=== PATIENT | male | born 1955 ===

== ENCOUNTER 2017-02-21 12:30 | Day surgery (SDC) | payer MEDICAID, OTHER ==
[~2017-02-21] VITALS: Ht 167.6 cm; Wt 62.1 kg
[~2017-02-21 12:30] MED LIST: 0.9% Sodium Chloride 1,000 ML IV PRN; IBUP200C PO; MELO-253 PO; SILO4CAP PO; Sodium Chloride LOK Flush 10 mL Syringe IV PRN; fentaNYL-PF 50 mCg/mL 2 mL Inj IVPUSH PRN
[2017-02-21 12:49] VITALS: BP 124/84; PULSE 86; RESP 16; O2SAT 100
[2017-02-21 13:57] VITALS: BP 89/61; PULSE 71; RESP 16; O2SAT 98
[2017-02-21 14:07] VITALS: BP 87/59; PULSE 77; RESP 16; O2SAT 97
[2017-02-21 14:17] VITALS: BP 82/59; PULSE 69; RESP 18; O2SAT 96
[2017-02-21 14:27] VITALS: BP 100/71; PULSE 74; RESP 14; O2SAT 99
--- NOTE | 2017-02-21 23:17 | ENDO ---
[address] [address] ENDOSCOPY PROCEDURE PATIENT: MORIAH HERNANDEZ : 1955 MR#: [id number] ADMIT: 02/21/2017 JOB ID: [id number] DATE OF SERVICE: 02/21/2017 PROCEDURE: Colonoscopy. INDICATIONS: Patient with a history of adenomatous colon polyps. The patient's ASA classification is 1, Mallampati score 2. MEDICATIONS: 1. Versed 4 mg. 2. Fentanyl 75 mcg. INSTRUMENT USED: PCF H 180 DL. PREPARATION QUALITY: Poor. PROCEDURE IN DETAIL: After informed consent was obtained, the patient was brought into the GI suite, where he was placed on oxygen via nasal cannula and monitored with continuous pulse oximeter, telemetry, and blood pressure monitoring. A time-out was performed. Then, he was placed in left lateral decubitus position and medications were administered for sedation. A digital rectal exam was performed, which was unremarkable. The colonoscope was then inserted into the rectum and advanced under direct visualization to the ileocecal valve. Once the ileocecal valve was reached, we did not attempt to intubate the cecum as the prep was poor. The colonoscope was then withdrawn back into the rectum as the mucosa and lumen were examined. There was semi-solid and solid stool scattered throughout the entire colon making visualization suboptimal. Retroflexed views in the rectum were unremarkable. IMPRESSION: Poor prep. RECOMMENDATIONS: Repeat colonoscopy with a two day prep. COMPLICATIONS: None. ESTIMATED BLOOD LOSS: 0.
== END 2017-02-21 23:59 | disposition home or self-care (01) ==
LOC: END 12:30
PROVIDERS: ATTEND Internal Medicine Gastroenterology
DX: Z12.11 Encounter for screening for malignant neoplasm of colon (principal); Z86.010 Personal history of colon polyps; M54.40 Lumbago with sciatica, unspecified side; K59.00 Constipation, unspecified; M06.9 Rheumatoid arthritis, unspecified; F32.9 Major depressive disorder, single episode, unspecified
CPT/HCPCS: 99152; G0105; J7030

== ENCOUNTER 2017-03-14 11:05 | Emergency (ER) | payer MEDICAID ==
[~2017-03-14] VITALS: Ht 170.2 cm; Wt 79.5 kg
[~2017-03-14 11:05] MED LIST changes: -0.9% Sodium Chloride 1,000 ML IV PRN; -Sodium Chloride LOK Flush 10 mL Syringe IV PRN; -fentaNYL-PF 50 mCg/mL 2 mL Inj IVPUSH PRN
--- NOTE | 2017-03-14 11:06 | ED.REPORT ---
HPI-General Illness Date of Service Mar 14, 2017 ED Provider: Raghu Bhandari DO Patient is a 61 year old male with a history of back pain who presents to the ED via EMS complaining of back pain. When asked if he has experienced bladder or bowel incontinence he states that occasionally he "dribbles after urination" and sometimes after eating a lot of fruit he is unable to make it to the bathroom for the bowel movement.The patient states that he has been experiencing numbness in parts of his legs but is unable to remember when this started. Patient was sent to the ED for a recommended MRI. Nursing Notes Stated Complaint: BACK PAIN Nursing Notes Reviewed: Yes Allergies: Coded Allergies: naproxen (Verified Allergy, Intermediate, Rash, 02/21/17) Sulfa (Sulfonamide Antibiotics) (Verified Allergy, Unknown, 02/21/17) Scheduled Meloxicam (Meloxicam) 15 Mg Tablet 15 MG PO DAILY Scheduled PRN Cyclobenzaprine (Cyclobenzaprine) 5 Mg Tablet 5 MG PO TID PRN PRN Spasm Hydroxyzine Pamoate (HydrOXYzine Pamoate) 25 Mg Capsule 25-50 MG PO Q6 PRN PRN ANXIETY Ibuprofen (Ibuprofen) 200 Mg Capsule 200 MG PO QID PRN PRN For Pain Naproxen (Naproxen) 500 Mg Tab 500 MG PO BID PRN PRN For Pain Miscellaneous Medications Ketorolac Tromethamine (Ketorolac Tromethamine) 30 Mg/1 Ml Syringe 30 MG IJ General Time Seen by MD: 11:06 Chief Complaint Back pain Hx Obtained From: Patient Arrived By: Ambulance Sudden in Onset?: No Onset Occurred: More than a week ago... (>6 months) Symptom Duration: Since onset Location: : Back Quality: Painful Recent Healthcare: No recent hospitalization, Recent doctor visit Similar Sx Previous: Yes Past Medical History Past Medical History osteoprosis chronic back pain Past Surgical History neck surgery Reports: Appendectomy Smoking History Unknown if Ever Smoker Ambulatory Status Independent Review of Systems Full Review of Systems Constitutional: Denies: Chills, Fever Respiratory: Denies: Non-productive cough, Shortness of breath Musculoskeletal: Reports: Back pain Neurologic: Reports: Numbness, Denies: Problem walking, Weakness Complete sys rev & neg: except as marked. Physical Exam Vital Signs Vital Signs Date Time Temp Pulse Resp B/P Pulse Ox O2 Delivery O2 Flow Rate FiO2 03/14/17 15:50 36.8 67 20 114/62 99 Room Air 03/14/17 13:39 36.8 78 20 122/72 99 Room Air 03/14/17 11:10 36.8 78 20 123/84 98 Room Air Initial VS: Reviewed General/Constitutional: Awake, Alert Head / Eyes: Atraumatic, Normocephalic, PERRL, EOMI Respiratory / Chest: Atraumatic, No respiratory distress BACK: lower lumbar tenderness parethesia of the right L3, L4 and left of L4 motor function 5/5 from L1-S1 bilaterally Lower Extremity / Pelvis / MS: Atraumatic, Full range of motion Skin: Atraumatic, Color NL, No rash, Warm, Dry Rectum / Perineum: Atraumatic normal rectal tone and sensation Neurologic: Oriented X3, Speech NL, No motor deficits, No sensory deficits Psychiatric: Affect NL, Mood NL Interpretation & Diagnostics Interpretation & Diagnostics: LUMBAR MRI: IMPRESSION: 1. No acute fracture, focal disc protrusion, or disc extrusion of the lumbar spine. 2. Soft tissue signal along the posterior margin of the T12 vertebral body may be related to vascular structures and/or volume averaging. However, an extruded disc fragment at this location is difficult to exclude. A thoracic spine MRI would be helpful for better evaluation, if indicated. 3. Moderate to severe multilevel degenerative changes of the lumbar spine are primarily evident involving the mid to lower facet joints. 4. Markedly distended urinary bladder with multiple bladder diverticula may be related to a neurogenic bladder or chronic bladder outlet obstruction. Please correlate clinically. 5. Central canal stenosis: L3-L4 (mild to moderate), L4-L5 (mild to moderate), L5-S1 (mild to moderate). 6. Neural foraminal stenosis: L4-L5 (mild to moderate bilateral), L5-S1 (moderate to severe bilateral). Dictated by: Bruce Watson M.D. on 03/14/2017 at 13:55 Approved by: Bruce Watson M.D. on 03/14/2017 at 14:08 Lab Results Interpretation Test 03/14/17 12:00 Hold Purple Top Tube Received (Received) Hold Blue Top Tube Received (Received) Hold [place] Top Tube Received (Received) Hold [place] Top Tube Received (Received) Re-Eval/Medical Decision Med Decision/Clinical Course Overall patient does not have significant signs for cauda equina syndrome, normal rectal tone and sensation, able to void on his own, no medical motor deficits on exam, mild paresthesias of the lower extremities that he states have improved during his hospital stay. He has been in around the department. An MRI without contrast was ordered due to the urging him concerning his primary care clinic. It is unremarkable. I did discuss the abnormal findings with radiology who did not think that any of them represented acute pathology, this is reasonable and reassuring. Patient will discharge on naproxen and cyclobenzaprine. Return and follow-up precautions given Time of Eval: 13:30 Re-Evaluation/Progress Note: Patient is sleeping. Discussed plan for MRI with sister. Time of Eval: 15:30 Re-Evaluation/Progress Note: Patient is moving both lower extremities and reports he has been up and walking around while in the ED. Discussed MRI results and plan for discharge. Patient understands and agrees to plan. All questions were addressed. Consultation : Call Returned at: 15:25 Note: Consult with Familia Smallwood, radiologist, who reports that the T12 area looks like prominent venous plexus, not consistent with infection or tumor. He doesn't think more imaging needs to be done. Counseled Regarding: Diagnosis, Lab results, Need for follow-up, When/why to return to ED Discharge & Departure Primary Impression: Low back pain Chronicity: chronic Back pain laterality: unspecified Sciatica presence: unspecified whether sciatica present Qualified Code: M54.5 - Low back pain Disposition: Home Discharge Condition All VS Reviewed: Yes Condition: Stable Additional Instructions: Your MRI is reassuring. There is no evidence of acute spinal cord compression. The bladder is distended on MRI however this is consistent with your prostate enlargement. Continue your home medication. Take cyclobenzaprine and naproxen as needed for discomfort. Call your regular doctor for close follow-up and referral to neurosurgery for possible steroid injection in your spine. Return to the ER if you develop severe uncontrolled pain, persistent numbness or weakness in your legs, loss of bowel or bladder control, or any other concerns Referrals: Peggy Deras PA-C (PCP) Scribe Attestation Portions of this note were transcribed by Lizzette Franco. I, Dr. Dena Delgado personally performed the history, physical exam and medical decision-making; I reviewed and confirmed the accuracy of the information in the transcribed note. Signed by: Robb Padron, 03/14/17 and [id number] copies to: Peggy Deras PA-C, Timothy S DO Mar 14, 2017 11:06 Carlene Franco Mar 14, 2017 11:28
[2017-03-14 11:10] VITALS: BP 123/84; PULSE 78; RESP 20; O2SAT 98
[2017-03-14] MEDS ORDERED: HYDR-3797 PO (11:29)
[2017-03-14] MEDS ORDERED: KETO30SY IJ (11:29)
[2017-03-14 13:39] VITALS: BP 122/72; PULSE 78; RESP 20; O2SAT 99
--- NOTE | 2017-03-14 15:10 | DRSVH ---
PROCEDURE: MRI LUMBAR SPINE WITHOUT CONTRAST ([id number]) INDICATIONS: back pain, bowel dysfunction TECHNIQUE: Noncontrast sagittal T1 spin echo and T2 fast echo, sagittal STIR, axial T1 and T2 fast spin echo thr ough the lumbar spine. In cases with scoliosis, additional coronal T2 fast spin echo may be performe d. COMPARISON: [facility], CR, XR LUMBAR SPINE 2 OR 3VW, 01/24/2017, 14:04. FINDINGS: Image quality: Diagnostic. Spinal Cord: The imaged portions of the spinal cord are normal in size and signal. The conus medulla ris is normal in position. Paraspinous Soft Tissues: No paravertebral masses. Image soft tissues of the abdomen and pelvis are grossly unremarkable; however, not adequately evaluated on this exam. The abdominal aorta is normal in course and caliber. The urinary bladder is noted to be markedly distended and extends above the level of the pelvic inlet. A prominent posterior urinary bladder diverticulum and possible adjacent right and left lateral bladder diverticula probably are present Bones: The vertebral body heights and marrow signal are within normal limits. There is no acute frac ture or dislocation. No suspicious osseous abnormalities are evident. For counting purposes, there is a rudimentary disc at S1-S2 with partial lumbarization of the S1 vertebral body. Lower thoracic levels: Mild degenerative changes of the included lower thoracic levels are present. T here is no central canal or neural foraminal narrowing at these levels. However, there is soft tissu e signal identified along the posterior cortex of the T12 vertebral body, demonstrating intermediate T2 signal and intermediate T1 signal, which is not adequately characterized on this examination and p artially effaces the central canal. However, this is only seen on the sagittal images and is not con firmed on the axial images as the axial images do not extend high enough. L1-L2: There is no significant disc bulge. However, there is moderate facet arthropathy and ligament um flavum laxity. There is no central canal or neural foraminal stenosis. L2-L3: There is no significant disc bulge. However, there is moderate facet arthropathy at this lev el with mild ligamentum flavum laxity. There is no central canal or neural foraminal stenosis. L3-L4: There is mild disc height loss, diffuse disc bulge, disc desiccation, and a small central nela lar fissure. Moderate facet arthropathy and ligamentum flavum laxity is present. Additionally, ther e is prominence of the dorsal epidural fat. These findings result in mild to moderate central canal stenosis without significant neural foraminal narrowing. L4-L5: There is mild disc height loss and diffuse disc bulge with a more focally prominent left later al disc bulge. Moderate to severe facet arthrosis is noted (left greater than right). There is liga mentum flavum prominence. These findings result in mild to moderate central canal stenosis and mild- to-moderate bilateral neural foraminal narrowing (left greater than right). L5-S1: There is disc height loss, diffuse disc bulge, disc desiccation, and severe facet arthrosis. These findings result in mild to moderate central canal stenosis and moderate to severe bilateral denzel ral foraminal stenosis. IMPRESSION: 1. No acute fracture, focal disc protrusion, or disc extrusion of the lumbar spine. 2. Soft tissue signal along the posterior margin of the T12 vertebral body may be related to vascula r structures and/or volume averaging. However, an extruded disc fragment at this location is difficu lt to exclude. A thoracic spine MRI would be helpful for better evaluation, if indicated. 3. Moderate to severe multilevel degenerative changes of the lumbar spine are primarily evident invo lving the mid to lower facet joints. 4. Markedly distended urinary bladder with multiple bladder diverticula may be related to a neurogen ic bladder or chronic bladder outlet obstruction. Please correlate clinically. 5. Central canal stenosis: L3-L4 (mild to moderate), L4-L5 (mild to moderate), L5-S1 (mild to modera te). 6. Neural foraminal stenosis: L4-L5 (mild to moderate bilateral), L5-S1 (moderate to severe bilatera l). Dictated by: Bruce Watson M.D. on 03/14/2017 at 13:55 Approved by: Bruce Watson M.D. on 03/14/2017 at 14:08
[2017-03-14] MEDS ORDERED: CYCL5TAB PO (15:38)
[2017-03-14] MEDS ORDERED: NPR500T PO (15:38)
[2017-03-14 15:50] VITALS: BP 114/62; PULSE 67; RESP 20; O2SAT 99
[2017-03-22] MEDS ORDERED: SILO4CAP PO (11:10)
== END 2017-03-14 15:52 | disposition home or self-care (01) ==
LOC: SED 11:05
DX: M54.5 Low back pain (principal); G89.29 Other chronic pain; Z88.2 Allergy status to sulfonamides; Z88.8 Allergy status to other drugs, medicaments and biological substances
CPT/HCPCS: 72148; 96374; 99285; J3360